=== PATIENT | male | born 1985 | race Asian ===

== ENCOUNTER 2017-03-12 20:53 | Emergency (ER) | payer OTHER ==
[~2017-03-12] VITALS: Ht 188 cm; Wt 104.0 kg
[2017-03-12 21:13] LABS: POINT-OF-CARE METER ID UU13113778
[2017-03-12 21:26] LABS: ADD MIUA? YES; BILIRUBIN NEGATIVE; BLOOD LARGE; COLOR YELLOW ((YELLOW)); GLUCOSE (STRIP) >=500; KETONES 5; LEUKOCYTES NEGATIVE; NITRITE NEGATIVE; PROTEIN (STRIP) NEGATIVE; SPECIFIC GRAVITY 1.037 (1.000-1.030); UROBILINOGEN 0.2 MG/DL (0.2-1.0)
[2017-03-12 21:35] LABS: BACTERIA NONE SEEN /HPF; EPITHELIAL CELLS NONE SEEN /HPF; MUCUS NONE SEEN /LPF; RED BLOOD CELLS TNTC /HPF (0-5); UCUL ADDED? YES; WHITE BLOOD CELLS 0-5 /HPF (0-5)
[2017-03-12 21:36] LABS: HEMATOCRIT 43.1 % (38.0-50.0); MCH 30.5 PG (29.0-34.0); MCHC 33.9 G/DL (30.0-36.0); MCV 90.2 FL (86-99); PLATELET COUNT 273 K/uL (156-360); RBC DIS.WIDTH-SD 39.2 % (39-53); RED BLOOD COUNT 4.78 M/uL (4.00-5.50); WHITE BLOOD COUNT 5.4 K/uL (4.1-10.2)
[2017-03-12 21:46] LABS: CHLORIDE 100 mEq/L (99-109); POTASSIUM 3.5 mEq/L (3.7-5.4); SODIUM 134 mEq/L (136-147)
[2017-03-12 21:50] LABS: ANION GAP 13 MEQ/L (2-14); TOTAL BILIRUBIN 0.6 mg/dL (0.0-1.0)
[2017-03-12 21:52] LABS: ALKALINE PHOSPHATASE 65 IU/L (3-129); GFR ESTIMATE (CALCULATED) > 59 mL/min/ (58.99-99999)
[2017-03-12 21:53] LABS: UREA NITROGEN (BUN) 9 mg/dL (9-23)
[2017-03-12 21:55] LABS: LIPASE 12 U/L (1.0-51.0)
[2017-03-12 22:04] LABS: GLUCOSE 460 mg/dL (70-99)
[2017-03-12 22:16] LABS: CARBON DIOXIDE (BICARBONATE) 24.5 MEQ/L (20-31)
[2017-03-12 23:29] LABS: POINT-OF-CARE METER ID UU13113800
[2017-03-13] MEDS ORDERED: LEVAQUIN500 MG PO (00:22)
[2017-03-13] MEDS ORDERED: ZOFRAN ODT4 MG PO (00:22)
[2017-03-13] MEDS ORDERED: ULTRAM50 MG PO (00:22)
[2017-03-13 00:44] VITALS: BP 135/93
== END 2017-03-13 00:46 | disposition home or self-care (01) ==
LOC: EME 20:53
PROVIDERS: Nurse Practitioner Family
DX: N45.1 Epididymitis (principal); E10.65 Type 1 diabetes mellitus with hyperglycemia; R10.30 Lower abdominal pain, unspecified; Z79.4 Long term (current) use of insulin; Z21 Asymptomatic human immunodeficiency virus [HIV] infection status; Z88.5 Allergy status to narcotic agent; Z88.6 Allergy status to analgesic agent
CPT/HCPCS: 74177; 76870; 80053; 81003; 82010; 82803; 82948; 83690; 85027; 87086; 99281; 99285; J2270; J2405; J7030

== ENCOUNTER 2017-08-10 23:51 | Emergency (ER) | payer OTHER ==
[~2017-08-10] VITALS: Ht 188 cm; Wt 102.4 kg
[~2017-08-10 23:51] MED LIST: LEVAQUIN500 MG PO; ULTRAM50 MG PO; ZOFRAN ODT4 MG PO
[2017-08-11 00:12] LABS: APPEARANCE CLEAR ((CLEAR)); BILIRUBIN NEGATIVE; BLOOD LARGE; COLOR STRAW ((YELLOW)); GLUCOSE (STRIP) >=500; KETONES 5; LEUKOCYTES NEGATIVE; NITRITE NEGATIVE; PROTEIN (STRIP) NEGATIVE; SPECIFIC GRAVITY 1.028 (1.000-1.030); UROBILINOGEN 0.2 MG/DL (0.2-1.0)
[2017-08-11 00:24] LABS: HEMATOCRIT 42.4 % (38.0-50.0); HEMOGLOBIN 14.2 G/DL (12.5-16.6); MCH 29.7 PG (29.0-34.0); MCHC 33.5 G/DL (30.0-36.0); MCV 88.7 FL (86-99); PLATELET COUNT 260 K/uL (156-360); RBC DIS.WIDTH-CV 12.2 % (11.8-14.6); RBC DIS.WIDTH-SD 39.2 % (39-53); RED BLOOD COUNT 4.78 M/uL (4.00-5.50)
[2017-08-11 00:24] LABS: BACTERIA RARE /HPF; EPITHELIAL CELLS RARE /HPF; MUCUS NONE SEEN /LPF; RED BLOOD CELLS TNTC /HPF (0-5); UCUL ADDED? YES; WHITE BLOOD CELLS 0-5 /HPF (0-5)
[2017-08-11 00:37] LABS: ALBUMIN 4.4 g/dL (3.2-4.8); CHLORIDE 100 mEq/L (99-109); POTASSIUM 3.9 mEq/L (3.7-5.4); SODIUM 134 mEq/L (136-147)
[2017-08-11 00:40] LABS: TOTAL PROTEIN 7.5 g/dL (6.4-8.3)
[2017-08-11 00:42] LABS: TOTAL BILIRUBIN 0.4 mg/dL (0.0-1.0)
[2017-08-11 00:43] LABS: ALKALINE PHOSPHATASE 69 IU/L (3-129); CREATININE 1.1 mg/dL (0.6-1.3); GFR ESTIMATE (CALCULATED) > 59 mL/min/ (58.99-99999)
[2017-08-11 00:45] LABS: AST (GOT) 15 IU/L (2-34); UREA NITROGEN (BUN) 11 mg/dL (9-23)
[2017-08-11 00:46] LABS: ALT (GPT) 21 IU/L (3-49)
[2017-08-11 00:47] LABS: LIPASE 29 U/L (1.0-51.0)
[2017-08-11 00:51] LABS: GLUCOSE 489 mg/dL (70-99)
[2017-08-11 03:37] VITALS: BP 137/92
== END 2017-08-11 03:43 | disposition home or self-care (01) ==
LOC: EME 23:51
PROVIDERS: Emergency Medicine
DX: E11.65 Type 2 diabetes mellitus with hyperglycemia (principal); R30.0 Dysuria; R11.2 Nausea with vomiting, unspecified; R19.7 Diarrhea, unspecified; R31.9 Hematuria, unspecified; N50.819 Testicular pain, unspecified; B20 Human immunodeficiency virus [HIV] disease
CPT/HCPCS: 76870; 80053; 81003; 82010; 82803; 82948; 83690; 85027; 87086; 99281; 99285; J2405; J3010; J7030